=== PATIENT | male | born 1955 | race Caucasian/White ===

== ENCOUNTER 2016-05-21 15:47 | Emergency (ER) | payer BC ==
[2016-05-21] MEDS ORDERED: SUCRALFATE 1 G/10 ML UDC PO ONE (16:07)
[2016-05-21] MEDS ORDERED: MAG HYDROX/ALUMINUM HYD/SIMETH 30 ML UDC PO ONE (16:07)
[2016-05-21] MEDS ORDERED: LIDOCAINE HCL 20 ML UDC MM ONE (16:07)
[2016-05-21 16:23] LABS: Hematocrit 47.1 % (42.0-52.0); Hemoglobin 16.2 gm/dL (13.5-18.0); Mean Cell Volume 90.4 fl (78-100); Mean Corpuscular Hemoglobin 31.1 pg (27-31); Mean Corpuscular Hgb Conc 34.4 g/dl (32-36); Neutrophil # 5.9 K/mm3 (1.3-6.0); Neutrophil % 64.7 % (42-75.0); Platelet Count 153 K/mm3 (150-450); Red Blood Count 5.21 M/mm3 (4.7-6.0); White Blood Count 9.1 K/mm3 (4.0-10.5)
[2016-05-21 16:39] LABS: ALT 39 U/L (19-67); AST 21 U/L (0-48); Albumin * 3.9 gm/dl (3.4-5.0); Alkaline Phosphatase * 81 U/L (50-170); Anion Gap 14.9 mmol/L (6.8-13.8); Blood Urea Nitrogen 23 mg/dL (6-23); Calcium * 9.2 mg/dL (7.9-10.9); Carbon Dioxide 26.3 mmol/L (24-32.6); Chloride 103 mmol/L (97-106); Glucose * 124 mg/dL (70-110); Potassium 4.2 mmol/L (3.4-4.6); Sodium 140 mmol/L (132-142); Total Protein 7.5 gm/dL (6.2-8.2)
[2016-05-21 16:40] LABS: Troponin I Less than 0.017 ng/ml (0.00-0.10)
--- NOTE | 2016-05-21 18:10 | ERNOTE ---
Chest Pain/Cardiac HPI Date of Service: 05/21/16 Chief Complaint: Chest Pain Time Seen by Provider: 05/21/16 17:39 Source: patient, family, RN notes reviewed Exam Limitations: no limitations Immunizations: IMMUNIZATION HX Immunizations Up to Date Yes Allergies/Adverse Reactions: Allergies No Known Allergies Allergy (Verified 05/21/16 16:04) Home Medications: HOME MEDICATIONS Esomeprazole Magnesium [Nexium] 40 mg PO DAILY 04/22/13 [Last Taken Unknown] Metoprolol Tartrate [Lopressor] 50 mg PO BID #60 tablet 04/16/14 [Last Taken Unknown] Flecainide Acetate [Tambocor] 100 mg PO PRN PRN 05/21/16 [Last Taken 05/21/16 300mg] Narrative: 60 y/o male for chest pain that began at 1100 this morning. 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 He reports the pain being a burning sensation in the middle of his chest and across his upper abdomen. He states he has problems with occasional heart burn, but never anything this severe. He has Nexium but does not take it routinely. He also reports belching and gastric contents coming up into the back of his throat. He also became anxious after a while of this and felt like his heart was racing. He took 300 mg of Flecanide without any improvement. Date (Duration): 05/21/16 Time (Timing): 11:00 Location: substernal, epigastric Chest Pain Radiation: no radiation Nitro Today/Relief: no nitro taken today Aspirin Treatment Today: no aspirin today Associated Symptoms: Present: palpitations, heartburn. Absent: headache, dizziness, syncope, cough, shortness of breath, diaphoresis, fever/chills, nausea, vomiting, abdominal pain, weakness, back pain, swelling/lump in chest Prior Chest Pain/Cardiac Workup: Denies: prior chest pain Review of Systems - Review of Systems Constitutional: Absent: recent illness, fever, malaise EYE: Present: no symptoms reported ENT: Absent: nose congestion, sore throat Respiratory: Absent: shortness of breath, cough Cardiology: Present: See HPI Gastrointestinal/Abdominal: Absent: nausea, vomiting Genitourinary: Present: no symptoms reported Musculoskeletal: Absent: muscle pain, joint pain Skin: Absent: rash, lesions Neurological: Absent: headache, dizziness/light-headedness, weakness Endocrine: Present: no symptoms reported Hematologic/Lymphatic: Present: no symptoms reported Psych: Present: no symptoms reported - Patient's Past Medical History Patient History - Medical: GERD Patient History - Cardiac/Respiratory: Atrial Fibrillation, Hypertension Patient History - Cancer: No Hx of Cancer Patient History - Surgical Procedures: Orthopedic Patient History - Other: None - Social History Living Situations: home Psych History: No pertinent hx Smoking Status: Current every day smoker Cigarettes Packs Per Day: 0.3 - Immunizations Immunizations Up to Date: Yes Physical Exam - Physical Exam General Appearance: Present: wd/wn, alert, no apparent distress Neck: Present: normal inspection, nontender, supple Respiratory: Present: no respiratory distress, normal breath sounds, no accessory muscle use, lungs clear Cardiovascular/Chest: Present: no murmur, normal peripheral pulses, bradycardia Gastrointestinal/Abdominal: Present: nontender, nondistended, soft Extremity Exam: Present: normal inspection, no edema Neurological Exam: Present: alert, oriented, normal mood/affect, no motor/ sensory deficits Skin Exam: Present: normal color, warm/dry ED Progress - Results and Orders Patient's Lab Results:: I have reviewed the patient's lab results. - Vital Signs Patient's Vital Signs:: I have reviewed the patient's vital signs. Vital Signs: Vital Signs 05/21/16 05/21/16 05/21/16 15:52 16:20 16:24 Temperature 36.7 C Pulse Rate 52 L 55 L 54 L Respiratory 16 13 Rate Blood Pressure 161/91 155/98 O2 Sat by Pulse 96 93 Oximetry 05/21/16 05/21/16 05/21/16 16:35 16:50 17:05 Temperature Pulse Rate 53 L 51 L 52 L Respiratory 14 14 13 Rate Blood Pressure 159/92 162/95 157/82 O2 Sat by Pulse 92 91 93 Oximetry - EKG EKG: NSR, other - Sinus brennan EKG read: Reviewed by me - Progress/Reassessment Chief Complaint: Chest Pain Progress:: Improved Progress Note-Subjective: Pain relieved with GI cocktail - patient had eated leftover cold fried fish and chicken before symptoms started. Has rx for Nexium for GERD but has not been routinely taking it. Departure - Departure Clinical Impression: Chest pain, non-cardiac Gastroesophageal reflux Qualifiers: Esophagitis presence: esophagitis presence not specified Qualified Code(s): K21.9 - Gastro-esophageal reflux disease without esophagitis Disposition: Home Follow Up Needed Condition: Good Instructions: Heartburn, Form - Excuse from Work, School, or Physical Activity Additional Instructions: Try taking zantac for heartburn as needed Follow up with your doctor as needed Return to ER for worsening symptoms Referrals: Allie Tiwari MD [Primary Care Provider] -
[2016-05-21 18:13] VITALS: BP 158/123
--- OUTSIDE RECORDS SUMMARY | 2016-05-21 18:22 | XMS REPORT | Continuity of Care Document ---
:1955 Author Organization [facility] ([facility]) Address [address] [place] [address] Phone [phone] Care Team Providers Name Role Phone Good Álvarez Primary Care Provider [phone] Source Comments This disclosure is being made pursuant to the Care Everywhere program, applicable federal and state laws, and may not contain all informaitonavailable regarding this patient.[facility] ([facility]) Active Allergies and Adverse Reactions Allergen Noted Date Severity Reactions Comments Diphenhydramine (Bulk) Urticaria (Hives),Agitation Current Medications Prescription Sig. Disp. Refills Start Date End Date Status SPIRIVA WITH HANDIHALER 08/16/2014 Active 18 mcg inhalation capsule fexofenadine-pseudoephe Take 1 Tab by 60 Tab 3 09/09/2014 Active drine 60-120 mg per XR mouth 2 times tablet (12 hour) daily PROAIR HFA 90 03/19/2015 Active mcg/Actuation inhaler esomeprazole 40 mg EC Take 40 mg by 03/19/2015 Active capsule mouth daily. metoPROLol tartrate 50 Take 1 tablet 180 tablet 3 10/21/2015 Active mg tablet (50 mg total) by mouth 2 times daily. flecainide 100 mg Take 1 tablet 180 tablet 3 01/03/2016 Active tablet (100 mg total) by mouth 2 times daily. aspirin, buffered 325 Take 1 tablet 11 01/03/2016 Active mg tablet (325 mg total) by mouth daily. Active Problems Problem Noted Date Chronic chest pain 09/08/2014 Overview: Formatting of this note may be different from the original. CARDIOVASCULAR PROCEDURES ECHO/MUGA: Echo (EF 0.53 (53%)) - 04/15/2014 STRESS TESTS: MPI (Small fixed apical defect with normal wall motion, likely represents soft tissue attenuation artifact. 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 Hyperlipemia Tobacco abuse Resolved Problems Problem Noted Date Resolved Date Hypertension 01/03/2016 Social History Tobacco Use Types Packs/Day Years Used Date Current Every Day Smoker Cigarettes 0.5 40 Tobacco Cessation:Ready to Quit: Yes; Counseling Given: Yes Comments: Last Filed Vital Signs Vital Sign Reading Time Taken Blood Pressure 132/70 01/03/2016 1:59 PM CDT Pulse 82 01/03/2016 1:59 PM CDT Temperature - - Respiratory Rate - - Height 1.829 m (6') 01/03/2016 1:59 PM CDT Weight 107.502 kg (237 lb) 01/03/2016 1:59 PM CDT Body Mass Index 32.14 01/03/2016 1:59 PM CDT Oxygen Saturation - - Plan of Care Date Type Specialty Providers Description 07/03/2016 Appointment Heart and Vascular Dayanara Ibrahim MD Chief Comp: Patient [address] [place] [address] Visit [phone] (Fax) Health Maintenance Due Date Last Done Comments HCV Screening 1955 Hepatitis B Vaccine (1 of 3 - Primary Series) 1955 Tdap Vaccine 1968 Lipid Disorder Screening 09/13/1975 MMR Vaccine 09/13/1975 Td Vaccine 09/13/1975 Pneumococcal Vaccine (1 of 1 - PPSV23) 1976 Colonoscopy 2007 Prostate Cancer Screening 09/13/2007 Influenza Vaccine: Seasonal (#1) 10/17/2015 Results from Last 3 Months Not on file
== END 2016-05-21 18:12 | disposition home or self-care (01) ==
LOC: ER 15:47
DX: R07.89 Other chest pain (principal); K21.9 Gastro-esophageal reflux disease without esophagitis; Z72.0 Tobacco use

== ENCOUNTER 2017-01-09 08:54 | Emergency (ER) | payer BC ==
[2017-01-09] MEDS ORDERED: ALBUTEROL SULFATE/IPRATROPIUM 3 ML NEBU IH ONE ×2 (09:31→09:54)
[2017-01-09 09:47] LABS: Hematocrit 46.5 % (42.0-52.0); Hemoglobin 16.3 gm/dL (13.5-18.0); Mean Cell Volume 91.4 fl (78-100); Mean Corpuscular Hgb Conc 35.1 g/dl (32-36); Mean Platelet Volume 11.6 fl (6.0-9.5); Neutrophil # 6.1 K/mm3 (1.3-6.0); Neutrophil % 62.6 % (42-75.0); Platelet Count 174 K/mm3 (150-450); Red Blood Count 5.09 M/mm3 (4.7-6.0); Red Cell Distribution Width 11.8 % (11.5-14.0); White Blood Count 9.7 K/mm3 (4.0-10.5)
[2017-01-09 10:05] LABS: Troponin I Less than 0.017 ng/ml (0.00-0.10)
[2017-01-09 10:06] LABS: ALT 29 U/L (19-67); AST 19 U/L (0-48); Albumin * 3.7 gm/dl (3.4-5.0); Alkaline Phosphatase * 107 U/L (50-170); BNP * 120 pg/mL (5-175); BUN/Creatinine Ratio 13.5 (9.0-21.6); Blood Urea Nitrogen 14 mg/dL (6-23); Ca. Corrected For Albumin 8.8 mg/dL (8.4-10.2); Calcium * 8.9 mg/dL (7.9-10.9); Carbon Dioxide 27.2 mmol/L (24-32.6); Chloride 105 mmol/L (97-106); Glucose * 102 mg/dL (70-110); Potassium 4.2 mmol/L (3.4-4.6); Sodium 138 mmol/L (132-142); Total Protein 7.3 gm/dL (6.2-8.2)
--- NOTE | 2017-01-09 10:49 | ERNOTE ---
Dyspnea - Date Date of Service: 01/09/17 - General Presenting Symptoms: other - sinus drainage Time Seen by Provider: 01/09/17 09:04 Source: patient Exam Limitations: no limitations - Immun/Allergies/Home Medications Immunizations: IMMUNIZATION HX Immunizations Up to Date Yes History of Influenza Vaccine No Hx Pneumococcal Vaccination No Allergies/Adverse Reactions: Allergies No Known Allergies Allergy (Verified 01/09/17 09:09) Home Medications: HOME MEDICATIONS Esomeprazole Magnesium [Nexium] 40 mg PO DAILY 04/22/13 [Last Taken Unknown] Metoprolol Tartrate [Lopressor] 50 mg PO BID #60 tablet 04/16/14 [Last Taken Unknown] Flecainide Acetate [Tambocor] 100 mg PO BID 05/21/16 [Last Taken 05/21/16 300mg] Albuterol Sulfate [Proair Hfa] 2 puff IH Q4H PRN #1 inhaler 01/09/17 [Last Taken Unknown] Amox Tr/Potassium Clavulanate [Augmentin 875-125 Tablet] 875 mg PO Q12H #20 tab 01/09/17 [Last Taken Unknown] Aspirin 325 mg PO DAILY 01/09/17 [Last Taken Unknown] Fexofenadine/Pseudoephedrine [Nanda-D 24 Hour Tablet] 1 each PO DAILY PRN [Last Taken Unknown] Prednisone 50 mg PO DAILY #5 tablet 01/09/17 [Last Taken Unknown] - History of Present Illness Narrative: Patient sent over from clinic for bradycardia. He has been having sinus problems with drainage down the back of his throat and cough for well over a week. he has been seen and given a Z-star and at that time had a fib with RVR. Dr Ibrahim was consulted and Medication changes initiated. He relates he went back today for a re-check and was noted to have bradycardia so was sent here. he relates still cough with some intermittent SOB. Also sinus pain with drainage down the back of his throat that bothers him significantly. He denies CP or syncope. No calf pain or leg swelling. He states [place] main thisng that is bothering him is the cough and the sinus pressure/drainage. 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 Denies: fever/chills, chest pain/ discomfort, palpitations, lightheadedness, weakness Prior Treatment: Reports: recently seen Review of Systems - Review of Systems Constitutional: Absent: fever ENT: Present: nose congestion, nasal drainage Respiratory: Present: cough Cardiology: Absent: chest pain Gastrointestinal/Abdominal: Absent: abdominal pain Skin: Absent: rash Neurological: Absent: weakness - Patient's Past Medical History Patient History - Medical: GERD Patient History - Cardiac/Respiratory: Atrial Fibrillation, Hypertension Patient History - Cancer: No Hx of Cancer Patient History - Surgical Procedures: Orthopedic Patient History - Other: None - Family History Father Family History - Cancer: Lung Brother Family History - Cancer: Throat - Social History Psych History: No pertinent hx Smoking Status: Current some day smoker Have you smoked in the past 12 months: Yes - Immunizations Immunizations Up to Date: Yes Hx Pneumococcal Vaccination: No History of Influenza Vaccine: No Physical Exam - Physical Exam General Appearance: Present: alert, no apparent distress, other - No distress. Speaking in full sentences. Non-toxic, no distress. Head Exam: Present: normal inspection, no evidence of injury Eye Exam: Normal inspection: bilateral, PERRL: bilateral Ears, Nose, Throat: Present: nasal congestion, sinus pain/drainage, other - mucoid drainage noted down the posterior oropharynx.. Absent: pharyngeal erythema, dry mucous membranes Neck: Present: normal inspection Respiratory: Present: no respiratory distress, no accessory muscle use, wheezing , other - scattered wheezes throughout.. 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 Absent: motor weakness Skin Exam: Present: normal color, warm/dry ED Progress - Results and Orders Patient's Lab Results:: I have reviewed the patient's lab results. - Vital Signs Patient's Vital Signs:: I have reviewed the patient's vital signs. Vital Signs: Vital Signs 01/09/17 01/09/17 01/09/17 09:13 09:34 09:55 Temperature 37.1 C Pulse Rate 44 L 46 L 43 L Respiratory 13 18 18 Rate Blood Pressure 157/85 177/97 O2 Sat by Pulse 95 95 97 Oximetry 01/09/17 10:03 Temperature Pulse Rate 43 L Respiratory Rate Blood Pressure O2 Sat by Pulse Oximetry - EKG EKG read: Interp. by me EKG Comments: Sinus bradycardia, non-specific, no STEMI - X-Ray X-Ray #1 X-Ray: chest Interpretation: Interp. by me X-ray Comments: I reviwed images and official radiology report. - Progress/Reassessment Chief Complaint: Dyspnea Progress Note-Subjective: 01/09/17 10:[address] Ibrahim and discussed history and findigs, she recommends leaving flecainide dose same but decreasing metoprolol dose to 23mg PO BID and close f/ u. He has prolonged bronchitis with wheezing and Hx COPD (also clinical sinusitis), given this will continue antibiotic coverage and short dose of steroids. He does have wheezing but no distress or hypoxia. 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 He is agreeable to this and wishes to go home. Stable at this time, feels better. I discussed warning signs and reasons to return as well as the need for close f/u. Departure Clinical Impression: Bronchitis, Sinusitis, Bradycardia - Departure Disposition: Home self-care Condition: Stable Instructions: Bradycardia Additional Instructions: I spoke with Dr Ibrahim, she recommends you continue your current Flecainide dose but decrease your Metoprolol dose to 25mg twice per day (half what you are now taking). I am giving you a prescription for antibiotics and steroid also. You have an appointment with Dr Tiwari tomorrow at 10am, please be there to have your heart rate re-checked. Return for chest pain, trouble breathing or if your condition worsens or changes in any way. Referrals: Allie Tiwari MD [Primary Care Provider] - Prescriptions: Albuterol Sulfate [Proair Hfa] 2 puff IH Q4H PRN #1 inhaler PRN Reason: Shortness Of Breath Amox Tr/Potassium Clavulanate [Augmentin 875-125 Tablet] 875 mg PO Q12H #20 tab Prednisone 50 mg PO DAILY #5 tablet
[2017-01-09 11:05] VITALS: BP 160/54
== END 2017-01-09 10:51 | disposition home or self-care (01) ==
LOC: ER 08:54
DX: J40 Bronchitis, not specified as acute or chronic (principal); J32.9 Chronic sinusitis, unspecified; R00.1 Bradycardia, unspecified; K21.9 Gastro-esophageal reflux disease without esophagitis; I48.91 Unspecified atrial fibrillation; Z79.01 Long term (current) use of anticoagulants; I10 Essential (primary) hypertension; F17.200 Nicotine dependence, unspecified, uncomplicated